=== PATIENT | male | born 1945 | race Caucasian/White ===

== ENCOUNTER 2021-08-01 12:51 | Outpatient (CLI) | payer MEDICARE ==
[~2021-08-01 12:51] MED LIST: Magnevist 469MG/ML 20 ML VIAL ONE
== END 2021-08-01 12:52 | disposition home or self-care (01) ==
LOC: TBSIIMAG 12:51
PROVIDERS: ATTEND Urology
DX: R97.20 Elevated prostate specific antigen [PSA] (principal); N32.89 Other specified disorders of bladder
CPT/HCPCS: 72197; 82565; A9579

== ENCOUNTER 2023-06-11 09:29 | Outpatient (CLI) | payer MEDICARE | END 2023-06-11 09:30 | disposition home or self-care (01) | LOC: SCSMRI 09:29 | PROVIDERS: ATTEND Physician Assistant | DX: H90.42 Sensorineural hearing loss, unilateral, left ear, with unrestricted hearing on the contralateral side (principal); I67.82 Cerebral ischemia | CPT/HCPCS: 70553 ==

== ENCOUNTER 2023-09-26 06:09 | Day surgery (SDC) | payer MEDICARE ==
[2023-09-25 11:28] VITALS: BMI 29.8
[~2023-09-26 06:09] MED LIST changes: +EPINEPHrine 0.3 MG in Ophthalmic Irrigation Solution 500 ML IRR SCH; -Magnevist 469MG/ML 20 ML VIAL ONE
[2023-09-26] MEDS ORDERED: PHENYLephrine 2.5% Ophth Soln 15 ml Bottle ONE (06:16)
[2023-09-26] MEDS ORDERED: Cyclopentolate 1% Opth Drop 2 ML BOT ONE (06:16)
[2023-09-26] MEDS ORDERED: Midazolam HCl 2 mg/2 ml Vial ONE (07:02)
[2023-09-26] MEDS ORDERED: PROPOFOL 20 ML ONE (07:02)
[2023-09-26] MEDS ORDERED: fentaNYL 50 mcg/mL 1 mL Vial ONE (07:02)
[2023-09-26] MEDS ORDERED: Bupivacaine 0.75% 10 ML VIAL ONE (07:08)
[2023-09-26] MEDS ORDERED: Lidocaine 4% PF 5 ML AMP ONE (07:08)
[2023-09-26] MEDS ORDERED: Dexamethasone 20 MG/5 ML VIAL ONE (07:08)
[2023-09-26] MEDS ORDERED: Maxitrol 0.1% Opth Oint 3.5 GM TUBE ONE (07:08)
[2023-09-26] MEDS ORDERED: CEFAZOLIN 1 GM VIAL ONE (07:08)
[2023-09-26] MEDS ORDERED: Lidocaine 1% PF 5 ML VIAL ONE (07:08)
[2023-09-26] MEDS ORDERED: Dexamethasone 4 mg/ml Vial ONE (07:29)
== END 2023-09-26 08:16 | disposition home or self-care (01) ==
LOC: SDC 06:09
PROVIDERS: ATTEND Ophthalmology Retina Specialist
PROC: 08T43ZZ Resection of Right Vitreous, Percutaneous Approach (ICD-10-PCS; principal; 2023-09-26)
DX: H43.311 Vitreous membranes and strands, right eye (principal)
CPT/HCPCS: 67041; J3010; J0171; J1100; J2250; J2704